=== PATIENT | female | born 1960 | race African-American/Black ===

== ENCOUNTER 2017-02-09 22:07 | Inpatient (IN) ==
[2017-02-09] MEDS ORDERED: NITROGLYCERIN 2% OINT 1 INCH/GM PACK TOP STA (22:47)
[2017-02-09] MEDS ORDERED: MORPHINE 2 MG/1 ML SYRINGE IV STA (22:47)
[2017-02-09] MEDS ORDERED: ASPIRIN 325 MG TABLET PO STA (22:47)
[2017-02-09] MEDS ORDERED: hydrALAZINE 20 MG/1 ML VIAL IV STA (22:47)
[2017-02-09] MEDS ORDERED: ONDANSETRON 4 MG/2 ML VIAL IV STA (22:47)
--- NOTE | 2017-02-09 22:50 | EKG Report ---
Stationary ECG Study [facility] ER Test Date: 02/09/2017 10:22:08 PM Pat Name: MORA RASMUSSEN Department: Room: Gender: F Seo Intern: Kati : 1960 Requested by: Howard Grant Order Number: [id number] Jesús MD: MARLENE GUNTER Intervals [place] Rate: 112 P: 61 IN: 145 QRS: 35 QRSD: 77 T: 47 QT: 344 QTc: 410 Interpretive Statements SINUS TACHYCARDIA POSSIBLE LEFT ATRIAL ENLARGEMENT Electronically Signed On 02-11-17 17:53:18 CDT by MARLENE GUNTER [email or web address]
[2017-02-09] MEDS ORDERED: NITROGLYCERIN 2% OINT 1 INCH/GM PACK TOP ONE (22:59)
[2017-02-09] MEDS ORDERED: hydrALAZINE 20 MG/1 ML VIAL ONE (22:59)
[2017-02-09] MEDS ORDERED: MORPHINE 2 MG/1 ML SYRINGE ONE (23:00)
[2017-02-09] MEDS ORDERED: ASPIRIN 325 MG TABLET ONE (23:00)
[2017-02-09] MEDS ORDERED: ONDANSETRON 4 MG/2 ML VIAL ONE (23:00)
[2017-02-09 23:05] LABS: Basophils % 0.6 % (0.0-0.8); Eosinophils # 0.1 10*3/uL (0.0-0.87); Eosinophils % 1.9 % (0.00-10.9); Hematocrit 40.4 VOL% (35.7-47.0); Hemoglobin 13.5 GM/DL (12.0-16.0); Immature Granulocytes % 0.3 %; Immature Granulocytes Absolute 0.02 #; Lymphocytes # 1.3 10*3/uL (1.4-4.0); Lymphocytes % 18.4 % (21.3-54.2); Mean Corpuscular HGB Conc 33.4 GM/DL (32-36); Mean Corpuscular Hemoglobin 28 PG (27-34); Mean Corpuscular Volume 82.8 FL (87-102); Mean Platelet Volume 13.5 FL (9.6-12.0); Monocytes # 0.6 10*3/uL (0.11-0.8); Monocytes % 8.4 % (1.7-12.7); Neutrophils # 4.8 10*3/uL (1.4-7.4); Neutrophils % 70.4 % (38.7-73.9); Platelet Count 190 T/CUMM (130-400); Red Blood Count 4.88 MC/CUMM (3.8-5.5); Red Cell Distribution Width 13.1 % (9.3-17.3); White Blood Count 6.8 T/CUMM (4-12)
--- NOTE | 2017-02-09 23:07 | Emergency Department Note ---
Andrew Pro Emily, am scribing for, and in the presence of, Howard Pemberton MD 22: 56. Nilay Pro Charles R, MD, personally performed the services described in this documentation, ascribed by May Morales in my presence, and it is both accurate and complete . Arrival - Arrival Chief Complaint: Chest Pain Stated Complaint: Chest Pains,upset stomach,Headaches ED Nursing Triage Note: pt states she started having cp yesterday and some sob. states it has gotten worse and now has developed n/v/d today Mode of Arrival: Ambulatory Limitations: No Limitations Source: Patient - History of Present Illness HPI Narrative: Pt is a 56 y/o female who came to ED with c/o pain that distributes throughout the body to bilateral knees which started last night. Pt notes the pain radiates from neck to chest down through abdomen, back, and legs. Pt notes not able to sleep due to pain last night. She is also experiencing numbness to legs , more so in left leg than right. PMHx of HTN, IDDM, NIDDM, COPD, biopsy- proven sarcoidosis, and RA. Onset (ago): day(s) Consistency: constant Severity: moderate Severity scale (1-10): 6 Quality: aching Allergies/Adverse Reactions: Allergies Allergy/AdvReac Type Severity Reaction Status Date / Time Penicillins AdvReac ANAPHYLAXIS Verified 12/14/15 19:49 Home Medications: Home Medications Medication Instructions Recorded Confirmed Type Budesonide/Formoterol 160-4.5 2 puff INH BID 07/09/15 09/20/16 History [Symbicort 160-4.5] Citalopram [CeleXA] 40 mg PO DAILY 07/09/15 09/20/16 History Insulin Glargine [Lantus] 45 unit SUBCUT BEDTIME 07/09/15 09/20/16 History Lisinopril 30 mg PO DAILY 07/09/15 09/20/16 History Loratadine [Claritin] 10 mg PO DAILY 07/09/15 09/20/16 History Ergocalciferol (Vitamin D2) 50,000 units PO Q7DAY 05/05/16 09/20/16 History [Vitamin D2] Albuterol Inhaler [Proventil 1 inhaler INH TID #1 inhaler 05/11/16 09/20/16 Rx Inhaler] Theophylline ER Tab 300 mg PO BID W/MEALS #60 tablet 05/11/16 09/20/16 Rx amLODIPine [Norvasc] 10 mg PO DAILY #30 tablet 05/11/16 09/20/16 Rx cloNIDine TAB [Catapres Tab] 0.2 mg PO TID #90 tablet 05/11/16 09/20/16 Rx Lidocaine 5% Patch [Lidoderm 5% 2 patch TRANSDERM DAILY #4 patch 06/04/16 Rx Patch] Ondansetron Tab [Zofran Tab] 4 mg PO Q6HR PRN #16 tablet 06/04/16 09/20/16 Rx Ciprofloxacin Tab [Cipro Tab] 500 mg PO BID #6 tablet 09/21/16 Rx Review of System - Review of System 12 point system: reviewed and no additional remarkable complaints except as stated - Review of System Constitutional: Absent: fever Respiratory: Absent: respiratory distress Cardiovascular: Present: chest pain (radiates throughout body) Gastrointestinal: Present: abdominal pain. Absent: nausea Musculoskeletal: Present: back pain, leg pain, neck pain Skin: Absent: rash Neurological: Present: numbness (to lower extremities). Absent: headache, confusion Psychiatric: Absent: anxiety Medical,Surgical,& Family Hx - Medical History Cardio: History of: Hypertension Psychological: History of: Anxiety Disorders, Depression Endocrine: History of: Diabetes Mellitus (IDDM), Diabetes Mellitus (NIDDM) Rheumatology: History of;: Rheumatoid Arthritis Respiratory: History of: Asthma, COPD, Respiratory Problems (biopsy-proven sarcoidosis) Musculoskeletal: No history of: Amputation - Surgical History Neurologic Surgeries: Patient denies: Neurologic Surgery HEENT Surgeries: Patient denies: Eye Surgery, Thyroid Surgery, Tonsilectomy & Adenoidectomy Abdominal Surgeries: Patient denies: Abdominal Surgery Reproductive Surgeries: Surgical HX of;: Section (x4), Hysterectomy Patient denies;: Genitourinary Surgery - Family History Family History: Reports;: Family Diabetes (mother sister), Family Hypertension ( mother) - Social History Smoking Status: Never smoker Frequency of Alcohol Use: None Type of Drug Use: None Functional capacity: independent ambulation Exam Vital Signs: Vital Signs Temperature 98.0 F 02/09/17 22:11 Pulse Rate 113 H 02/09/17 22:11 Respiratory Rate 20 02/09/17 22:11 Blood Pressure 225/162 02/09/17 22:11 O2 Sat by Pulse Oximetry 92 L 02/09/17 22:11 - General General appearance: alert, in no apparent distress - Head Head exam: Present: atraumatic, normocephalic - Eye Eye exam: Present: PERRL, EOMI - ENT ENT exam: Present: mucous membranes moist, other (grinds teeth). Absent: mucous membranes dry - Neck Neck exam: Present: full ROM, other (JVD distention ). Absent: tenderness - Chest Chest inspection: Present: symmetric chest wall rise. Absent: tenderness - Respiratory Respiratory exam: Present: rales (bilateral). Absent: normal lung sounds bilaterally - Cardiovascular Cardiovascular exam: Present: tachycardia, normal heart sounds - Abdominal Exam Abdominal exam: Present: soft, distention (bloated), tenderness (epigastric), diminished bowel sounds. Absent: guarding, rebound - Extremities Exam Extremities exam: Present: full ROM, pedal edema (+2), other (pulsating in femoral). Absent: tenderness - Neurological Exam Neurological exam: Present: alert, oriented X3, CN II-XII intact. Absent: motor sensory deficit - Psychiatric Psychiatric exam: Present: normal affect, normal mood - Skin Skin exam: Present: warm, dry, intact Course - Consultations Consultation #1: Hospitalist will admit patient Time: 23:55 Results - Labs CBC & BMP: 02/09/17 22:54 02/09/17 22:54 Lab Results: I have reviewed the patients labs Labs: Laboratory Tests 02/09/17 22:54 MCV 82.8 L MPV 13.5 H Lymph % (Auto) 18.4 L Lymph # (Auto) 1.3 L Laboratory Tests 02/09/17 02/09/17 22:54 22:54 Potassium 3.4 L Chloride 109 H BUN 19 H Creatinine 1.20 H Glucose 141 H Magnesium 1.7 L Alkaline Phosphatase 212 H Troponin I 0.074 H Albumin/Globulin Ratio 1.0 L Critical Care Time Critical Care Time: Yes Total Critical Care Time: 60 Disposition Clinical Impression: Medical non-compliance, Acute dyspnea, Chest pain, Malignant hypertension, Sarcoidosis of lung with sarcoidosis of lymph nodes Case discussed with: patient Disposition: Still a Patient Condition: Critical Time of Disposition: 23:55
[2017-02-09 23:14] LABS: INR 1.1; PT Patient Result 11.5 SECS
[2017-02-09 23:27] LABS: Alanine Aminotransferase 21 U/L (13-56); Albumin 3.5 G/DL (3.4-5.0); Alkaline Phosphatase 212 U/L (45-117); Aspartate Amino Transferase 22 U/L (0-37); Bilirubin,Total < 0.39 MG/DL (0.2-1.0); Blood Urea Nitrogen 19 MG/DL (7-18); Calcium 9.5 MG/DL (8.5-10.1); D-Dimer <= 0.5 MG/L FEU; Glucose 141 MG/DL (74-106); Magnesium 1.7 MG/DL (1.8-2.4); Osmolality,Calculated 289.8 MOS/KG (273-304); Potassium 3.4 MMOL/L (3.5-5.1); Sodium 144 MMOL/L (136-145)
[2017-02-09] MEDS ORDERED: POTASSIUM CHLORIDE 20 MEQ TABLET PO STA (23:36)
[2017-02-09] MEDS ORDERED: MAGNESIUM SULF RIDER 2 GM in PREMIX 1 EACH IV STA (23:36)
[2017-02-09] MEDS ORDERED: MAGNESIUM SULF RIDER 50 ML IV ONE (23:47)
[2017-02-09] MEDS ORDERED: POTASSIUM CHLORIDE 20 MEQ TABLET PO ONE (23:47)
[2017-02-09] MEDS ORDERED: FUROSEMIDE 40 MG/4 ML VIAL IV STA (23:54)
[2017-02-10 00:07] LABS: Barbiturates Screen,Urine Negative (Negative); Benzodiazepines Screen,Urine Negative (Negative); Cannabinoid Screen,Urine Negative (Negative); Opiate Screen,Urine Positive (Negative); Phencyclidine Screen,Urine Negative (Negative)
[2017-02-10 00:08] LABS: Apearance,Urine CLEAR (Clear); Bilirubin,Urine Negative (Negative); Blood, Urine Moderate mg/dL (Negative); Glucose,Urine (UA) Negative (Negative); Ketones,Urine Negative (Negative); Nitrite,Urine Negative (Negative); Protein,Urine Negative; RBC,Urine 21 /HPF (0-4); Squamous Epithelial Cell,Urine Occasional /HPF (0-10); Urine Color Straw (Yellow); Urine Specific Gravity 1.023 (1.001-1.035); Urine Urobilinogen < 2.0 EU/DL (0.2-1.0); WBC,Urine 2 /HPF (0-6)
--- NOTE | 2017-02-10 00:36 | Hospitalist History & Physical ---
Assessment and Plan (1) Acute dyspnea Status: Acute Assessment and plan: Most likely associated with malignant hypertension. This patient also has history of sarcoidosis pulmonary sarcoidosis could be a contribution. Need to be followed as well controlled and blood pressure. Hopefully that will respond put in the coming 46 hours Current Visit: Yes (2) Chest pain Status: Acute Assessment and plan: Patient is seen complaining of pain that is constantly there. No reproducible she is complaining of shortness of breath whether this is a pulmonary source is not clear Current Visit: Yes (3) Malignant hypertension Status: Acute Assessment and plan: This could be contribution of her essential hypertension but noncompliance with medication is something to do with it because she withheld use of clonidine at home. Cannot explain to me why she did not use her clonidine looks like she has been missing it multiple times. She gets her medication from the [place] system. I believe this medication should be resumed alongside other oral antihypertensives except for the amlodipine we should withheld now that we are using Cardene. The prep patient comes down we should resume the amlodipine and stop the Cardene IV. She will be admitted to the intensive care unit to hospital medicine services. Current Visit: Yes History of Present Illness Chief complaint: Chest pain History of present illness: Ms. Rubi is a 56 year old female came to ED with c/o pain that distributes throughout the body to bilateral knees which started last night. Pt notes the pain radiates from neck to chest down through abdomen, back, and legs. Pt notes not able to sleep due to pain last night. She is also experiencing numbness to legs, more so in left leg than right. PMHx of HTN, IDDM, NIDDM, COPD, biopsy-proven sarcoidosis, and RA. Patient is known to be hypertensive with followed by [place] hospital system in the area. She acknowledges not having use her clonidine for at least 3 days. Concerned that this could be refractory hypertension. Blood pressure at home however she mentions that on the high 2. Patient was seen and stabilized in the emergency room was started on IV Cardene which will continue overall I think this patient should be resuming her home medications and if the blood pressures come to within acceptable range Tylenol for Cardene. Is also taking amlodipine at home which of withheld at this point because we are using Cardene. I discussed the case with the patient and family member at bedside and also with a physician in the emergency room about the events that happened at home to where she is missed her medications. Home Medications Medication Instructions Recorded Confirmed Type Budesonide/Formoterol 160-4.5 2 puff INH BID 07/09/15 09/20/16 History [Symbicort 160-4.5] Citalopram [CeleXA] 40 mg PO DAILY 07/09/15 09/20/16 History Insulin Glargine [Lantus] 45 unit SUBCUT BEDTIME 07/09/15 09/20/16 History Lisinopril 30 mg PO DAILY 07/09/15 09/20/16 History Loratadine [Claritin] 10 mg PO DAILY 07/09/15 09/20/16 History Ergocalciferol (Vitamin D2) 50,000 units PO Q7DAY 05/05/16 09/20/16 History [Vitamin D2] Albuterol Inhaler [Proventil 1 inhaler INH TID #1 inhaler 05/11/16 09/20/16 Rx Inhaler] Theophylline ER Tab 300 mg PO BID W/MEALS #60 tablet 05/11/16 09/20/16 Rx amLODIPine [Norvasc] 10 mg PO DAILY #30 tablet 05/11/16 09/20/16 Rx cloNIDine TAB [Catapres Tab] 0.2 mg PO TID #90 tablet 05/11/16 09/20/16 Rx Lidocaine 5% Patch [Lidoderm 5% 2 patch TRANSDERM DAILY #4 patch 06/04/16 Rx Patch] Ondansetron Tab [Zofran Tab] 4 mg PO Q6HR PRN #16 tablet 06/04/16 09/20/16 Rx Ciprofloxacin Tab [Cipro Tab] 500 mg PO BID #6 tablet 09/21/16 Rx Allergies Allergy/AdvReac Type Severity Reaction Status Date / Time Penicillins AdvReac ANAPHYLAXIS Verified 12/14/15 19:49 Medical,Surgical,& Family Hx - Medical History Cardio: History of: Hypertension Psychological: History of: Anxiety Disorders, Depression Endocrine: History of: Diabetes Mellitus (IDDM), Diabetes Mellitus (NIDDM) Rheumatology: History of;: Rheumatoid Arthritis Respiratory: History of: Asthma, COPD, Respiratory Problems (biopsy-proven sarcoidosis) Musculoskeletal: No history of: Amputation - Surgical History Neurologic Surgeries: Patient denies: Neurologic Surgery HEENT Surgeries: Patient denies: Eye Surgery, Thyroid Surgery, Tonsilectomy & Adenoidectomy Abdominal Surgeries: Patient denies: Abdominal Surgery Reproductive Surgeries: Surgical HX of;: Section (x4), Hysterectomy Patient denies;: Genitourinary Surgery - Family History Family History: Reports;: Family Diabetes (mother sister), Family Hypertension ( mother) - Social History Smoking Status: Never smoker Frequency of Alcohol Use: None Type of Drug Use: None Review of systems: 12 system assessment was done. Constitutional nothing pans out. Patient still complaining of some chest discomfort. CT scan done is pending report but there is no obvious dissection. Still circulation is good. High blood pressures and Cardene adjust been started. As is review of systems significant for the chief complaint history of presenting illness and past medical history Exam - Constitutional Vitals: Period Temp Pulse Resp BP Sys/Camp Pulse Ox Last 24 Hr 98.0 F 113 20 225/162 92 General appearance: over weight - Head Head exam: Present: normocephalic, atraumatic - Eye Eye exam: Present: EOMI, other (Anicteric sclera no conjunctival petechiae pink conjunctivae) Pupils: Present: TORI - ENT ENT exam: Present: normal oropharynx - Neck Neck exam: Present: normal inspection, other (No JVD no bruits midline trachea) - Respiratory Respiratory exam: Present: clear to auscultation bilaterally, other (No rales no wheezing) - Cardiovascular Cardiovascular exam: Present: regular rate and rhythm, other (No gallops no murmur) - GI/Abdominal GI/Abdominal exam: Present: normal bowel sounds, soft - Neurological Exam Neurological exam: Present: alert, oriented X3, CN II-XII intact - Psychiatric Psychiatric exam: Present: normal affect, normal mood - Skin Skin exam: Present: normal color, warm, dry Results - Labs CBC & BMP: 02/09/17 22:54 02/09/17 22:54 Lab Results: I have reviewed the past 24 hour labs (Noted mild hypokalemia and a creatinine of 1.2)
[2017-02-10] MEDS ORDERED: FUROSEMIDE 40 MG/4 ML VIAL ONE (00:59)
[2017-02-10] MEDS ORDERED: ONDANSETRON 4 MG/2 ML VIAL IV PRN (03:00)
[2017-02-10] MEDS ORDERED: PANTOPRAZOLE 40 MG VIAL IV ONE (03:00)
--- NOTE | 2017-02-10 04:35 | EKG Report ---
Stationary ECG Study [facility] Test Date: 02/10/2017 2:37:28 AM Pat Name: MORA RASMUSSEN Department: Room: 127 Gender: F Home Service Director: : 1960 Requested by: Howard Grant Order Number: [id number] Reading MD: MARLENE GUNTER Intervals [place] Rate: 88 P: 62 MT: 133 QRS: 28 QRSD: 81 T: 45 QT: 403 QTc: 448 Interpretive Statements SINUS RHYTHM WITH SHORT MT POSSIBLE LEFT ATRIAL ENLARGEMENT Electronically Signed On 02-11-17 17:55:36 CDT by MARLENE GUNTER [email or web address]
--- NOTE | 2017-02-10 04:43 | EKG Report ---
Stationary ECG Study [facility] Test Date: 02/10/2017 4:43:34 AM Pat Name: MORA RASMUSSEN Department: Room: 127 Gender: F Medical Laboratory Technologist: : 1960 Requested by: Howard Grant Order Number: [id number] Reading MD: MARLENE GUNTER Intervals [place] Rate: 96 P: 60 TX: 123 QRS: 28 QRSD: 77 T: 34 QT: 422 QTc: 475 Interpretive Statements SINUS RHYTHM WITH SHORT TX WITH OCCASIONAL ECTOPIC PREMATURE COMPLEXES PROLONGED QT INTERVAL Electronically Signed On 02-11-17 17:57:32 CDT by MARLENE GUNTER [email or web address]
[2017-02-10] MEDS: niCARdipine INJ 25 MG in SODIUM CHLORIDE 0.9% 240 ML IV SCH ×3 (05:15→10:00)
[2017-02-10 06:14] LABS: Calcium 9.4 MG/DL (8.5-10.1); Potassium 3.5 MMOL/L (3.5-5.1)
--- NOTE | 2017-02-10 07:18 | XRay Report ---
Referring Physician: Howard Pemberton Exam: XR chest 1V portable Date: February 09, 2017 at 11:07 AM Reason: Chest pain Comparison: Chest one view portable September 20, 2016, CT angiogram aorta February 09, 2017 Findings: The cardiac silhouette is again enlarged. The interstitial markings are slightly prominent bilaterally, mainly on the right. This could represent minimal pulmonary edema, but pneumonia is not excluded. No pneumothorax or pleural effusion is identified. No acute osseous process is seen. Impression: 1. Cardiomegaly. 2. The interstitial markings are slightly prominent, mainly on the right. This could represent minimal pulmonary edema, but pneumonia is not excluded. PROCEDURE INTERPRETED AT [facility] DEPARTMENT OF RADIOLOGY Final Report Signed by: Dr. Remberto Mera
[2017-02-10] MEDS: ALBUTEROL 2.5 MG/3 ML NEB RESP TX SCH ×3 (07:27→19:19)
--- NOTE | 2017-02-10 07:34 | CT Report ---
CT angiography of the chest, abdomen, and pelvis, to include the aorta. Axial images were obtained during the arterial phase, with sagittal and coronal reconstructions as well as 3-D reconstructions. Comparison is made with the previous CT of the abdomen from June 03, 2016. There is a previous abdomen and pelvis CT from May 07, 2016. No previous contrasted CT of the chest. 100 cc Omni 350. Indication: Acute chest and abdomen pain. There is a preliminary report from [place]. The thyroid gland is normal in size. There is no supraclavicular lymphadenopathy. There is no pericardial or pleural effusion. Within the right upper lobe, there is an interstitial infiltrate, with scattered interstitial opacities elsewhere. The heart is enlarged. No pulmonary thromboembolism is seen. There is no pericardial or pleural effusion. The aorta is of normal caliber throughout its length. At the aortic root, the transverse dimension is 3.3 cm and the AP diameter is 2.9 cm. At the arch, the transverse diameter is 2.8 cm and the AP diameter is 2.7 cm. At the descending thoracic aorta, the AP diameter is 2.3 cm in the transverse diameter is 2.5 cm. At the upper abdominal aorta, the AP diameter is 2.2 cm in the transverse diameter is 2.3 cm. At the mid abdominal aorta, the AP diameter is 1.8 cm in transverse diameter is 1.8 cm. At the distal abdominal aorta, the AP diameter is 1.75 cm in the transverse diameter is 1.75 cm. Along the undersurface of the aortic arch, there is a small amount of calcific plaque. No additional plaque is noted. No intimal flaps, or intramural thrombus seen. No evidence of aortic dissection. There is a common trunk for the right subclavian artery, vertebral artery, and carotid artery. The left carotid as a separate origin, the left vertebral originates from the left subclavian. These vessels are widely patent. There are single renal arteries bilaterally. The origins of the celiac, SMA, renal arteries, and iliac arteries are widely patent. The liver is enlarged with the length of 19 cm. The spleen is upper limits of normal in size with a splenic index of 540. Scattered colonic diverticula are noted. There is mild stable prominence of the pancreatic duct. No free air or free fluid within the peritoneal cavity. Mild focal wall thickening on the left aspect of the urinary bladder, not seen previously. Degenerative changes of the spinal column, with anterior wedging of a couple of lower thoracic vertebra. Impression: 1. The aorta is of normal caliber throughout its length, with only a small amount of calcific plaque along the undersurface of the arch. There is no evidence of aneurysm or dissection. 2. There is a right upper lobe pneumonia. 3. Cardiomegaly. 4. Mild asymmetric thickening of the left urinary bladder wall. This could be related to scar tissue or cystitis. Very early developing mass cannot be excluded. Correlation with follow-up UA recommended. The CT exam was performed using one or more of the following dose reduction techniques: Automated exposure control, adjustment of the mA and/or kV according to patient size, or use of iterative reconstruction technique. PROCEDURE INTERPRETED AT [facility] DEPARTMENT OF RADIOLOGY Final Report Signed by: Dr. Ayanna Mcfarlane
[2017-02-10] MEDS ORDERED: ERGOCALCIFEROL 50,000 UNIT CAPSULE PO SCH (09:00)
[2017-02-10] MEDS ORDERED: DEXTROSE 50% 25 GM/50 ML VIAL IV PRN (09:16)
[2017-02-10] MEDS ORDERED: GLUCAGON 1 MG VIAL IM PRN (09:16)
[2017-02-10] MEDS ORDERED: FUROSEMIDE 40 MG/4 ML VIAL IV ONE (09:16)
[2017-02-10] MEDS: THEOPHYLLINE ER 300 MG TABLET PO SCH ×2 (09:17→17:40)
[2017-02-10] MEDS: CITALOPRAM 40 MG TABLET PO SCH (09:18)
[2017-02-10] MEDS: LISINOPRIL 10 MG TABLET PO SCH (09:20)
[2017-02-10] MEDS: LORATADINE 10 MG TABLET PO SCH (09:20)
[2017-02-10] MEDS: PANTOPRAZOLE 40 MG VIAL IV SCH (09:21)
[2017-02-10] MEDS: BUDESONIDE/FORMOTEROL 160-4.5 INHALER 6 GM INH SCH ×2 (09:26→20:41)
[2017-02-10] MEDS ORDERED: LIDOCAINE 5% PATCH TRANSDERM SCH (09:30)
[2017-02-10] MEDS: amLODIPine 10 MG TABLET PO SCH (09:40)
[2017-02-10] MEDS: INSULIN LISPRO 100 UNIT/ML SUBCUT SCH ×3 (12:11→20:41)
[2017-02-10] MEDS: ACETAMINOPHEN 325 MG TABLET PO PRN ×2 (15:20→20:40)
[2017-02-10] MEDS ORDERED: INSULIN GLARGINE 100 UNIT/ML SUBCUT SCH (21:00)
[2017-02-10] MEDS ORDERED: SODIUM CHLORIDE 0.9% 500 ML IV ONE (23:13)
[2017-02-11 06:37] LABS: Calcium 9.1 MG/DL (8.5-10.1); Osmolality,Calculated 294.6 MOS/KG (273-304); Potassium 3.5 MMOL/L (3.5-5.1)
[2017-02-11] MEDS: INSULIN LISPRO 100 UNIT/ML SUBCUT SCH ×4 (07:20→21:35)
[2017-02-11] MEDS: niCARdipine INJ 25 MG in SODIUM CHLORIDE 0.9% 240 ML IV SCH (07:21)
[2017-02-11] MEDS ORDERED: cloNIDine 0.1 MG TABLET PO SCH (07:26)
[2017-02-11] MEDS ORDERED: SODIUM CHLORIDE 0.9% 500 ML IV ONE (07:26)
[2017-02-11] MEDS: LISINOPRIL 10 MG TABLET PO SCH (08:30)
[2017-02-11] MEDS: THEOPHYLLINE ER 300 MG TABLET PO SCH ×2 (08:30→17:02)
[2017-02-11] MEDS: PANTOPRAZOLE 40 MG VIAL IV SCH (08:30)
[2017-02-11] MEDS: amLODIPine 10 MG TABLET PO SCH (08:30)
[2017-02-11] MEDS: CITALOPRAM 40 MG TABLET PO SCH (08:30)
[2017-02-11] MEDS: SODIUM CHLORIDE 0.45% 1,000 ML IV SCH ×2 (08:30→21:05)
[2017-02-11] MEDS: LORATADINE 10 MG TABLET PO SCH (08:31)
[2017-02-11] MEDS: BUDESONIDE/FORMOTEROL 160-4.5 INHALER 6 GM INH SCH ×2 (08:32→20:52)
[2017-02-11] MEDS: ALBUTEROL 2.5 MG/3 ML NEB RESP TX SCH ×3 (08:41→19:54)
--- NOTE | 2017-02-11 10:27 | Physician Query Form ---
CLICK EDIT DOCUMENT TO SELECT QUERY ANSWER --> OK --> SIGN Aarti Leigh RN Clinical Quality Assurance Supervisor Trim W) [phone] (f) [phone] [email or web address] PROVIDERS: Make your selection(s) from the choices in EACH section by typing an "x" and enter comments in the comment section. Please use your independent medical judgment in providing your response. This request does not imply that any particular answer is desired or expected. CLINCAL INDICATORS: (Providers should not edit this section) Based on the documentation of "Acute malignant hypertension" BP in ER of 225/ 162. Treated with IV Cardene. Note: Hypertensive crises can present as hypertensive urgency or hypertensive emergency. Clarify which, if any of the following, is a more accurate diagnosis reflecting the type and acuity of the documented hypertension: TYPE: ( ) Hypertensive Urgency (x ) Hypertensive Emergency ( ) Uncontrolled chronic hypertension at baseline ( ) Other, please specify: ( ) Clinically unable to determine Criteria Source - Up to Date (This topic last updated: Dec 10, 2015) HYPERTENSIVE URGENCY: Severe hypertension (usually a diastolic blood pressure above 120 mmHg) in asymptomatic patients is referred to as hypertensive urgency. There is no proven benefit from rapid reduction in blood pressure in asymptomatic patients who have no evidence of acute end-organ damage and are at little short-term risk. HYPERTENSIVE EMERGENCY: Severe hypertension (usually a diastolic blood pressure above 120 mmHg) with evidence of acute end-organ damage is defined as a hypertensive emergency. A hypertensive emergency can be life threatening and requires immediate treatment, usually with parenteral medications in a monitored setting. COMMENTS: Use of terms such as suspected, likely, or probable (associated with a specific diagnosis that is being evaluated, monitored, or treated as if it exists) are acceptable and can be restated in the discharge summary if not ruled out. MTDD
--- NOTE | 2017-02-11 11:21 | Hospitalist Progress Note ---
Assessment and Plan (1) Malignant hypertension Status: Resolved Assessment and plan: 1)malignant HTN- she presented as she has done before with shortness of breath and atypical chest pain due to her uncontrolled HTN. These symptoms resolved when her Bp was controlled. Stop the clonidine and only give norvasc it SBP over 120. I have bolused her again this morning as she appears dry after her diuresis yesterday. Her UOp has now increased. She is dehydrated. 2)MAGNOLIA- due to diuresis, recheck creatinine in am. bolused, started some IVF. 3)DM- decrease insulin to 35U each day with SSI. glucose only 91 this morning and she is not eating much. Current Visit: No (2) Dyspnea Status: Acute Current Visit: No (3) Sarcoidosis Status: Acute Current Visit: No (4) Atypical chest pain Status: Acute Current Visit: No (5) Insulin dependent diabetes mellitus Status: Acute Current Visit: No (6) Medical non-compliance Status: Acute Current Visit: Yes Hospitalist: Subjective Interval history: Ms Rubi is doing much better. Her Bp is actually on the low side this morning - I think when we restarted the meds she takes at home it has dropped because she doesn't actually take them. She says she takes her insulin at home regularly, but I am going to have to decrease it because she has been a little low. Exam - Constitutional Vitals: Period Temp Pulse Resp BP Sys/Camp Pulse Ox Last 24 Hr 96.7 F-98.2 F 66-94 16-22 91-149/52-99 90-99 General appearance: no acute distress, over weight - Head Head exam: Present: normocephalic, atraumatic - Eye Eye exam: Present: EOMI. Absent: scleral icterus - Respiratory Respiratory exam: Present: clear to auscultation bilaterally - Cardiovascular Cardiovascular exam: Present: regular rate and rhythm - GI/Abdominal GI/Abdominal exam: Present: normal bowel sounds, soft. Absent: tenderness - Extremities Exam Extremities exam: Absent: edema Results - Labs CBC & BMP: 02/09/17 22:54 02/11/17 04:41 Lab Results: I have reviewed the past 24 hour labs
[2017-02-11] MEDS: ACETAMINOPHEN 325 MG TABLET PO PRN (17:05)
[2017-02-11] MEDS: INSULIN GLARGINE 100 UNIT/ML SUBCUT SCH (21:38)
[2017-02-12] MEDS: ALBUTEROL 2.5 MG/3 ML NEB RESP TX SCH ×3 (08:01→19:53)
[2017-02-12] MEDS: PANTOPRAZOLE 40 MG VIAL IV SCH (09:22)
[2017-02-12] MEDS: INSULIN LISPRO 100 UNIT/ML SUBCUT SCH ×4 (09:22→21:45)
[2017-02-12] MEDS: amLODIPine 10 MG TABLET PO SCH (09:25)
[2017-02-12] MEDS: LISINOPRIL 10 MG TABLET PO SCH (09:25)
[2017-02-12] MEDS: THEOPHYLLINE ER 300 MG TABLET PO SCH ×2 (09:25→16:53)
[2017-02-12] MEDS: CITALOPRAM 40 MG TABLET PO SCH (09:26)
[2017-02-12] MEDS: LORATADINE 10 MG TABLET PO SCH (09:26)
[2017-02-12] MEDS: BUDESONIDE/FORMOTEROL 160-4.5 INHALER 6 GM INH SCH ×2 (09:26→20:29)
[2017-02-12] MEDS: ACETAMINOPHEN 325 MG TABLET PO PRN ×2 (09:30→20:26)
--- NOTE | 2017-02-12 09:48 | Hospitalist Progress Note ---
Assessment and Plan (1) Acute dyspnea Status: Acute Assessment and plan: Resolved on this assessment. Current Visit: Yes (2) Chest pain Status: Acute Assessment and plan: Resolved at this time with this assessment. This was associated with hypertensive emergency. Current Visit: Yes (3) Malignant hypertension Status: Acute Assessment and plan: Relatively well-controlled on this assessment. Patient is off IV Cardene 48 hours off. Continue lisinopril and amlodipine. It may be need of adding a beta -kenneth. Current Visit: Yes Hospitalist: Subjective Interval history: Patient seen interviewed and examined. She is complaining of a headache. Blood pressure enter from what looks like midnight is 195/88. Previous entries show blood pressures 120 and 132 was 1 that was actually 93/64 and another 149/ 82. The pattern is rather erratic. She is currently on lisinopril 30 mg daily and amlodipine 10 mg daily. His 2 other normal blood pressures medications at this point given the dramatic nature of the blood pressure so far. I would not like to cause hypotension. Exam - Constitutional Vitals: Period Temp Pulse Resp BP Sys/Camp Pulse Ox Last 24 Hr 96.6 F-98.5 F 76-93 16-20 123-195/72-88 90-99 General appearance: over weight - Head Head exam: Present: normocephalic, atraumatic - Eye Eye exam: Present: EOMI Pupils: Present: TORI - ENT ENT exam: Present: normal exam, normal oropharynx - Neck Neck exam: Present: normal inspection, other (No JVD no thyromegaly) - Respiratory Respiratory exam: Present: clear to auscultation bilaterally - Cardiovascular Cardiovascular exam: Present: regular rate and rhythm, other (Occasional ectopy) - GI/Abdominal GI/Abdominal exam: Present: normal bowel sounds - Extremities Exam Extremities exam: Present: full ROM - Skin Skin exam: Present: normal color, warm, dry Results - Labs CBC & BMP: 02/09/17 22:54 02/11/17 04:41 Lab Results: I have reviewed the past 24 hour labs (Morning labs are ordered for tomorrow)
[2017-02-12] MEDS: CARVEDILOL 6.25 MG TABLET PO SCH (20:27)
[2017-02-12] MEDS: INSULIN GLARGINE 100 UNIT/ML SUBCUT SCH (21:44)
[2017-02-13 03:58] LABS: Magnesium 1.9 MG/DL (1.8-2.4); Osmolality,Calculated 285.8 MOS/KG (273-304); Potassium 3.7 MMOL/L (3.5-5.1); Thyroid Stimulating Hormone 1.16 uIU/ml (0.358-3.74)
[2017-02-13] MEDS: ALBUTEROL 2.5 MG/3 ML NEB RESP TX SCH ×3 (07:26→19:30)
[2017-02-13] MEDS: amLODIPine 10 MG TABLET PO SCH ×2 (07:33→08:03)
[2017-02-13] MEDS: LORATADINE 10 MG TABLET PO SCH ×2 (07:34→08:03)
[2017-02-13] MEDS: CARVEDILOL 6.25 MG TABLET PO SCH ×2 (07:34→08:03)
[2017-02-13] MEDS: CITALOPRAM 40 MG TABLET PO SCH ×2 (07:34→08:03)
[2017-02-13] MEDS: THEOPHYLLINE ER 300 MG TABLET PO SCH ×2 (07:34→17:26)
[2017-02-13] MEDS: LISINOPRIL 10 MG TABLET PO SCH ×2 (07:34→08:03)
[2017-02-13] MEDS: PANTOPRAZOLE 40 MG VIAL IV SCH ×2 (07:35→08:03)
[2017-02-13] MEDS ORDERED: hydrALAZINE 20 MG/1 ML VIAL IV ONE (07:46)
[2017-02-13] MEDS: BUDESONIDE/FORMOTEROL 160-4.5 INHALER 6 GM INH SCH ×2 (08:03→20:48)
[2017-02-13] MEDS: INSULIN LISPRO 100 UNIT/ML SUBCUT SCH ×4 (08:04→22:05)
--- NOTE | 2017-02-13 10:51 | Hospitalist Progress Note ---
Assessment and Plan (1) Acute dyspnea Status: Acute Assessment and plan: Resolved on this assessment. Current Visit: Yes (2) Chest pain Status: Acute Assessment and plan: Resolved at this time with this assessment. This was associated with hypertensive emergency. Current Visit: Yes (3) Malignant hypertension Status: Acute Assessment and plan: Relatively well-controlled on this assessment. However this too sporadic spikes of blood pressure. Would have done a days raise the dose of lisinopril to 40 mg daily added hydrochlorothiazide 25 mg daily and raise the dose of carvedilol to 12.5 mg twice a day. Patient will be active ambulate intention is to discharge her tomorrow Current Visit: Yes Hospitalist: Subjective Interval history: Ms. Rubi is been seen interviewed and examined and chart has been reviewed. Noted area this morning systolic blood pressures above 200 with cyst diastolics 110. I have reviewed his long-term on antihypertensive medications. Lisinopril be increased to 40 mg daily and carvedilol will be increased to 12.5 mg twice a day. History of a heart hydrochlorothiazide on board alongside the lisinopril. Because there is no 4025 of lisinopril we will give hydrochlorothiazide separately as a tablet. Continue BP checks at least twice a shift. Encourage patient to ambulate. Target discharged date is tomorrow. Exam - Constitutional Vitals: Period Temp Pulse Resp BP Sys/Camp Pulse Ox Last 24 Hr 97.8 F-98.6 F 56-107 17-22 142-200/82-126 85-109 General appearance: over weight - Head Head exam: Present: normocephalic, atraumatic - Eye Eye exam: Present: EOMI Pupils: Present: TORI - ENT ENT exam: Present: normal oropharynx - Neck Neck exam: Present: normal inspection, other (Old anterior neck surgical scar. Denies hypothyroid issues but it was surgery to axis inside the chest. I wonder this was admitted for mediastinoscopy or removal of some sternal thyroid not sure patient is not sure either and is not medical record) - Respiratory Respiratory exam: Present: clear to auscultation bilaterally - Cardiovascular Cardiovascular exam: Present: regular rate and rhythm - GI/Abdominal GI/Abdominal exam: Present: normal bowel sounds, soft - Extremities Exam Extremities exam: Present: full ROM - Back Exam Back exam: Present: normal inspection - Neurological Exam Neurological exam: Present: alert, oriented X3, CN II-XII intact - Psychiatric Psychiatric exam: Present: normal affect, normal mood - Skin Skin exam: Present: normal color, warm, dry Results - Labs CBC & BMP: 02/09/17 22:54 02/13/17 02:22 Lab Results: I have reviewed the past 24 hour labs
[2017-02-13] MEDS: hydrALAZINE 20 MG/1 ML VIAL IV PRN (15:00)
[2017-02-13] MEDS: ACETAMINOPHEN 325 MG TABLET PO PRN ×2 (15:00→20:44)
[2017-02-13] MEDS: CARVEDILOL 12.5 MG TABLET PO SCH (20:49)
[2017-02-13] MEDS: INSULIN GLARGINE 100 UNIT/ML SUBCUT SCH (22:06)
[2017-02-14] MEDS: hydrALAZINE 20 MG/1 ML VIAL IV PRN (06:13)
[2017-02-14] MEDS: ALBUTEROL 2.5 MG/3 ML NEB RESP TX SCH (07:16)
[2017-02-14] MEDS: INSULIN LISPRO 100 UNIT/ML SUBCUT SCH ×2 (07:36→12:30)
[2017-02-14] MEDS: CITALOPRAM 40 MG TABLET PO SCH (08:33)
[2017-02-14] MEDS: THEOPHYLLINE ER 300 MG TABLET PO SCH (08:33)
[2017-02-14] MEDS: amLODIPine 10 MG TABLET PO SCH (08:34)
[2017-02-14] MEDS: PANTOPRAZOLE 40 MG VIAL IV SCH (08:34)
[2017-02-14] MEDS: CARVEDILOL 12.5 MG TABLET PO SCH (08:34)
[2017-02-14] MEDS: LORATADINE 10 MG TABLET PO SCH (08:34)
[2017-02-14] MEDS: BUDESONIDE/FORMOTEROL 160-4.5 INHALER 6 GM INH SCH (08:36)
[2017-02-14] MEDS ORDERED: CARVEDILOL 25 MG TABLET PO SCH (09:00)
[2017-02-14] MEDS ORDERED: LISINOPRIL 20 MG TABLET PO SCH (09:00)
[2017-02-14] MEDS ORDERED: hydroCHLOROthiazide 25 MG TABLET PO SCH (09:00)
[2017-02-14 10:11] VITALS: BP 161/74
--- NOTE | 2017-02-14 10:45 | Discharge Summary ---
<Ismael Jain - Last Filed: 02/14/17 10:38> Diagnosis - Discharge Diagnosis (1) Acute dyspnea Status: Acute (2) Chest pain Status: Acute (3) Malignant hypertension Status: Acute Discharge Plan - Discharge Data Disposition: Disch To Home/Self Care Condition at Discharge: Stable Discharge Diet: heart healthy Activity: resume usual activities as tolerated Hygiene: no restrictions Weight Bearing at Discharge: full weight bearing Driving: no restrictions - Discharge Medications New Lisinopril [Prinivil] 40 mg PO DAILY #30 tablet Theophylline ER Tab 300 mg PO BID W/MEALS #60 tablet hydroCHLOROthiazide [Hydrochlorothiazide] 25 mg PO DAILY #30 tablet Carvedilol [Coreg] 6.25 mg PO BID #60 tablet amLODIPine [Norvasc] 10 mg PO DAILY #30 tablet Continue Citalopram [CeleXA] 40 mg PO DAILY Insulin Glargine [Lantus] 50 unit SUBCUT BEDTIME Budesonide/Formoterol 160-4.5 [Symbicort 160-4.5] 2 puff INH BID Loratadine [Claritin] 10 mg PO DAILY Ergocalciferol (Vitamin D2) [Vitamin D2] 50,000 units PO Q7DAY Albuterol Inhaler [Proventil Inhaler] 1 inhaler INH TID #1 inhaler cloNIDine TAB [Catapres Tab] 0.2 mg PO TID #90 tablet Lidocaine 5% Patch [Lidoderm 5% Patch] 2 patch TRANSDERM DAILY #4 patch Ondansetron Tab [Zofran Tab] 4 mg PO Q6HR PRN #16 tablet PRN Reason: Nausea/Vomiting Discontinued Lisinopril 40 mg PO DAILY - Follow Up or Referral - Forms/Instructions Exam - Constitutional Vitals: Period Temp Pulse Resp BP Sys/Camp Pulse Ox Last 24 Hr 97.5 F-98.4 F 82-120 16-20 161-196/74-110 92-99 General appearance: over weight - Head Head exam: Present: normal inspection, normocephalic, atraumatic - Eye Eye exam: Present: EOMI Pupils: Present: TORI - ENT ENT exam: Present: normal exam - Neck Neck exam: Present: normal inspection - Cardiovascular Cardiovascular exam: Present: regular rate and rhythm - GI/Abdominal GI/Abdominal exam: Present: normal bowel sounds, soft - Extremities Exam Extremities exam: Present: full ROM - Back Exam Back exam: Present: normal inspection - Neurological Exam Neurological exam: Present: alert, oriented X3, CN II-XII intact - Psychiatric Psychiatric exam: Present: normal affect, normal mood - Skin Skin exam: Present: normal color, warm, dry Discharge Results Labs on day of discharge: Labs from last 24 hours 02/14/17 02/13/17 02/13/17 07:31 21:50 16:39 POC Glucose 154 H 157 H 107 H 02/13/17 02/13/17 11:08 07:12 POC Glucose 148 H 92 DS: Provider Date of admission: 02/10/17 00:27 Primary care physician: . No PCP Attending physician on admission: Ismael Jain MD Discharging clinician: Ismael Jain MD <Sukhi Hanley - Last Filed: 02/14/17 11:17> Hospital Course - Hospital Course Hospital Course: This patient is a 56 year-old female who was admitted through the [facility] ED on 02/10/2017 with malignant hypertension, chest pain and associated dyspnea. The patient was found to be non-compliant with her home medications. She was admitted to the ICU, treated for her hypertension with IV Cardene and diureses and was subsequently found to normalize fairly quickly and become dehydrated. She was bolused and started on IV fluids. Chest pain resolved within one day of admission. She was transferred to a med/surg floor. HTN medications were adjusted (Lisinopril increased to 40 mg daily, HCTZ 25 mg daily added, and Carvedilol increased to 12.5 mg twice daily). The remainder of her hospital course was relatively uncomplicated, highlighted by management of her hypertension and counseling for medical compliance. She has reached maximum benefit from hospitalization at this time and is stable for discharge. She will be discharged home with appropriate instructions per discharge orders and addendum per Dr. Jain. - Time spent with patient Time with patient DS: Greater than 30 minutes DS: Provider Expected date of discharge: 02/14/17
== END 2017-02-14 13:55 | disposition home or self-care (01) | DRG 305 ==
LOC: N.ED 22:07 → N.EDINP 02-10 00:27 → SUATTDRO 02-10 00:27 → N.CC 02-10 01:15 → N.4E 02-11 14:32
PROVIDERS: ADMIT Internal Medicine Infectious Disease; ATTEND Internal Medicine Infectious Disease

== ENCOUNTER 2017-08-14 21:32 | Observation (INO) ==
[2017-08-14] MEDS ORDERED: NITROGLYCERIN 2% OINT 1 INCH/GM PACK TOP STA (22:12)
[2017-08-14] MEDS ORDERED: FUROSEMIDE 100 MG/10 ML VIAL IV STA (22:12)
[2017-08-14] MEDS ORDERED: MORPHINE 2 MG/1 ML SYRINGE IV STA (22:12)
[2017-08-14] MEDS ORDERED: methylPREDNISolone SOD SUC 125 MG/2 ML VIAL IV STA (22:12)
[2017-08-14] MEDS ORDERED: ONDANSETRON 4 MG/2 ML VIAL IV STA (22:12)
[2017-08-14] MEDS ORDERED: hydrALAZINE 20 MG/1 ML VIAL IV STA (22:12)
[2017-08-14] MEDS ORDERED: NITROGLYCERIN 2% OINT 1 INCH/GM PACK TOP ONE (22:18)
[2017-08-14] MEDS ORDERED: hydrALAZINE 20 MG/1 ML VIAL ONE (22:18)
[2017-08-14] MEDS ORDERED: MORPHINE 2 MG/1 ML SYRINGE ONE (22:19)
[2017-08-14] MEDS ORDERED: ONDANSETRON 4 MG/2 ML VIAL ONE (22:19)
[2017-08-14] MEDS ORDERED: FUROSEMIDE 100 MG/10 ML VIAL ONE (22:19)
[2017-08-14] MEDS ORDERED: methylPREDNISolone SOD SUC 125 MG/2 ML VIAL ONE (22:19)
[2017-08-14] MEDS ORDERED: ALBUTEROL 2.5 MG/3 ML NEB RESP TX SCH (22:30)
[2017-08-14 22:43] LABS: Basophils # 0.1 10*3/uL (0.0-0.2); Basophils % 0.8 % (0.0-0.8); Eosinophils # 0.3 10*3/uL (0.0-0.87); Eosinophils % 4.2 % (0.00-10.9); Hematocrit 36.8 VOL% (35.7-47.0); Hemoglobin 12.6 GM/DL (12.0-16.0); Immature Granulocytes % 0.3 %; Immature Granulocytes Absolute 0.02 #; Lymphocytes # 1.5 10*3/uL (1.4-4.0); Lymphocytes % 25.9 % (21.3-54.2); Mean Corpuscular HGB Conc 34.2 GM/DL (32-36); Mean Corpuscular Hemoglobin 29 PG (27-34); Mean Corpuscular Volume 83.8 FL (87-102); Mean Platelet Volume 13.2 FL (9.6-12.0); Monocytes # 0.7 10*3/uL (0.11-0.8); Monocytes % 11.1 % (1.7-12.7); Neutrophils # 3.4 10*3/uL (1.4-7.4); Neutrophils % 57.7 % (38.7-73.9); Platelet Count 190 T/CUMM (130-400); Red Blood Count 4.39 MC/CUMM (3.8-5.5); Red Cell Distribution Width 12.9 % (9.3-17.3); White Blood Count 5.9 T/CUMM (4-12)
[2017-08-14 22:53] LABS: INR 1.1; PT Patient Result 11.4 SECS
[2017-08-14 23:06] LABS: Albumin 3.4 G/DL (3.4-5.0); Bilirubin,Total 0.4 MG/DL (0.2-1.0); Calcium 9.1 MG/DL (8.5-10.1); Magnesium 1.6 MG/DL (1.8-2.4); Potassium 3.6 MMOL/L (3.5-5.1); Total Protein 6.7 G/DL (6.4-8.3); Troponin I Only 0.021 NG/ML (0.00-0.045)
[2017-08-14] MEDS ORDERED: MAGNESIUM SULF RIDER 2 GM in PREMIX 1 EACH IV STA (23:14)
[2017-08-14 23:29] LABS: Apearance,Urine CLEAR (Clear); Bacteria,Urine Occasional /HPF (Few); Bilirubin,Urine Negative (Negative); Blood, Urine Negative (Negative); Glucose,Urine (UA) Negative (Negative); Hyaline Casts,Urine 1 /LPF (0-3); Ketones,Urine Negative (Negative); Mucus,Urine Occasional /LPF (Occasional); Nitrite,Urine Negative (Negative); Protein,Urine Negative; RBC,Urine 1 /HPF (0-4); Squamous Epithelial Cell,Urine Occasional /HPF (0-10); Urine Color Yellow (Yellow); Urine Specific Gravity 1.008 (1.001-1.035); Urine Urobilinogen < 2.0 EU/DL (0.2-1.0); WBC,Urine 3 /HPF (0-6)
[2017-08-14] MEDS ORDERED: MAGNESIUM SULF RIDER 50 ML IV ONE (23:36)
[2017-08-14 23:38] LABS: Barbiturates Screen,Urine Negative (Negative); Benzodiazepines Screen,Urine Negative (Negative); Cannabinoid Screen,Urine Negative (Negative); Opiate Screen,Urine Negative (Negative); Phencyclidine Screen,Urine Negative (Negative)
[2017-08-15] MEDS ORDERED: LEVOFLOXACIN INJ 750 MG in PREMIX 1 EACH IV STA (00:25)
[2017-08-15] MEDS ORDERED: hydrALAZINE 20 MG/1 ML VIAL ONE (00:37)
[2017-08-15] MEDS ORDERED: hydrALAZINE 20 MG/1 ML VIAL IV STA ×2 (00:40→00:48)
[2017-08-15] MEDS ORDERED: LEVOFLOXACIN INJ 150 ML IV ONE (00:50)
[2017-08-15] MEDS ORDERED: INSULIN REGULAR 100 UNIT/ML SUBCUT ONE (01:59)
[2017-08-15] MEDS ORDERED: ONDANSETRON 4 MG/2 ML VIAL IV PRN (01:59)
[2017-08-15] MEDS ORDERED: KETOROLAC 10 MG TABLET PO PRN (02:03)
[2017-08-15] MEDS ORDERED: hydrALAZINE 20 MG/1 ML VIAL IV PRN (02:04)
[2017-08-15] MEDS ORDERED: GLUCAGON 1 MG VIAL IM PRN ×2 (03:03→11:16)
[2017-08-15] MEDS ORDERED: DEXTROSE 50% 25 GM/50 ML VIAL IV PRN ×2 (03:03→11:16)
[2017-08-15] MEDS ORDERED: INFLUENZA VIRUS VACCINE 0.5 ML SYRINGE IM ONE (03:22)
[2017-08-15 04:43] LABS: Risk Ratio 4.66; VLDL CHOLESTEROL 18.2 MG/DL
[2017-08-15] MEDS: NITROGLYCERIN 2% OINT 1 INCH/GM PACK TOP SCH ×4 (05:33→23:32)
[2017-08-15] MEDS: ALBUTEROL 2.5 MG/3 ML NEB RESP TX SCH ×3 (07:50→20:03)
[2017-08-15] MEDS: INSULIN REGULAR 100 UNIT/ML SUBCUT SCH ×4 (08:50→22:25)
[2017-08-15] MEDS ORDERED: ERGOCALCIFEROL 50,000 UNIT CAPSULE PO SCH (09:00)
[2017-08-15] MEDS: hydroCHLOROthiazide 25 MG TABLET PO SCH (09:05)
[2017-08-15] MEDS: THEOPHYLLINE ER 300 MG TABLET PO SCH ×2 (09:05→16:37)
[2017-08-15] MEDS: CARVEDILOL 6.25 MG TABLET PO SCH ×2 (09:06→22:26)
[2017-08-15] MEDS: ASPIRIN EC 325 MG TABLET PO SCH (09:06)
[2017-08-15] MEDS: LISINOPRIL 20 MG TABLET PO SCH (09:06)
[2017-08-15] MEDS: LORATADINE 10 MG TABLET PO SCH (09:07)
[2017-08-15] MEDS: CITALOPRAM 40 MG TABLET PO SCH (09:08)
[2017-08-15] MEDS: LIDOCAINE 5% PATCH TRANSDERM SCH (09:08)
[2017-08-15] MEDS: ENOXAPARIN 40 MG/0.4 ML SYRINGE SUBCUT SCH (09:08)
[2017-08-15] MEDS: BUDESONIDE/FORMOTEROL 160-4.5 INHALER 6 GM INH SCH ×2 (11:22→22:26)
[2017-08-15] MEDS: COLESTIPOL 1 GM TABLET PO SCH (22:25)
[2017-08-15] MEDS: EZETIMIBE 10 MG TABLET PO SCH (22:26)
[2017-08-16 01:35] LABS: Basophils % 0.1 % (0.0-0.8); Eosinophils % 0.1 % (0.00-10.9); Hematocrit 38.5 VOL% (35.7-47.0); Immature Granulocytes % 0.4 %; Immature Granulocytes Absolute 0.06 #; Lymphocytes # 1.7 10*3/uL (1.4-4.0); Lymphocytes % 12.1 % (21.3-54.2); Mean Corpuscular HGB Conc 33.8 GM/DL (32-36); Mean Corpuscular Hemoglobin 28 PG (27-34); Mean Corpuscular Volume 83.5 FL (87-102); Mean Platelet Volume 13.7 FL (9.6-12.0); Monocytes # 1.3 10*3/uL (0.11-0.8); Monocytes % 9.7 % (1.7-12.7); Neutrophils # 10.6 10*3/uL (1.4-7.4); Neutrophils % 77.6 % (38.7-73.9); Platelet Count 218 T/CUMM (130-400); Red Blood Count 4.61 MC/CUMM (3.8-5.5); Red Cell Distribution Width 13.2 % (9.3-17.3); White Blood Count 13.6 T/CUMM (4-12)
[2017-08-16] MEDS: ALBUTEROL 2.5 MG/3 ML NEB RESP TX SCH ×3 (07:18→19:31)
[2017-08-16 09:53] LABS: Calcium 10.2 MG/DL (8.5-10.1); Osmolality,Calculated 292.3 MOS/KG (273-304); Potassium 3.4 MMOL/L (3.5-5.1)
[2017-08-16] MEDS: THEOPHYLLINE ER 300 MG TABLET PO SCH ×2 (10:29→16:58)
[2017-08-16] MEDS: ASPIRIN EC 325 MG TABLET PO SCH (10:29)
[2017-08-16] MEDS: INSULIN REGULAR 100 UNIT/ML SUBCUT SCH ×4 (10:29→20:14)
[2017-08-16] MEDS: NITROGLYCERIN 2% OINT 1 INCH/GM PACK TOP SCH ×3 (10:29→17:51)
[2017-08-16] MEDS: CITALOPRAM 40 MG TABLET PO SCH (10:30)
[2017-08-16] MEDS: LORATADINE 10 MG TABLET PO SCH (10:30)
[2017-08-16] MEDS: COLESTIPOL 1 GM TABLET PO SCH ×2 (10:30→20:13)
[2017-08-16] MEDS: hydroCHLOROthiazide 25 MG TABLET PO SCH (10:31)
[2017-08-16] MEDS: LIDOCAINE 5% PATCH TRANSDERM SCH (10:31)
[2017-08-16] MEDS: CARVEDILOL 6.25 MG TABLET PO SCH ×2 (10:31→20:13)
[2017-08-16] MEDS: LISINOPRIL 20 MG TABLET PO SCH (10:32)
[2017-08-16] MEDS: BUDESONIDE/FORMOTEROL 160-4.5 INHALER 6 GM INH SCH ×2 (10:32→20:13)
[2017-08-16] MEDS: ENOXAPARIN 40 MG/0.4 ML SYRINGE SUBCUT SCH (10:32)
[2017-08-16] MEDS: EZETIMIBE 10 MG TABLET PO SCH (20:13)
[2017-08-17] MEDS: NITROGLYCERIN 2% OINT 1 INCH/GM PACK TOP SCH ×3 (02:46→11:28)
[2017-08-17 05:44] LABS: Basophils # 0.1 10*3/uL (0.0-0.2); Basophils % 0.9 % (0.0-0.8); Eosinophils # 0.1 10*3/uL (0.0-0.87); Eosinophils % 1.9 % (0.00-10.9); Hematocrit 40.4 VOL% (35.7-47.0); Hemoglobin 13.5 GM/DL (12.0-16.0); Immature Granulocytes % 0.3 %; Immature Granulocytes Absolute 0.02 #; Lymphocytes # 2.2 10*3/uL (1.4-4.0); Lymphocytes % 29.5 % (21.3-54.2); Mean Corpuscular HGB Conc 33.4 GM/DL (32-36); Mean Corpuscular Hemoglobin 28 PG (27-34); Mean Corpuscular Volume 84.9 FL (87-102); Mean Platelet Volume 13.8 FL (9.6-12.0); Monocytes # 0.7 10*3/uL (0.11-0.8); Monocytes % 9.5 % (1.7-12.7); Neutrophils # 4.3 10*3/uL (1.4-7.4); Neutrophils % 57.9 % (38.7-73.9); Platelet Count 205 T/CUMM (130-400); Red Blood Count 4.76 MC/CUMM (3.8-5.5); Red Cell Distribution Width 13.2 % (9.3-17.3); White Blood Count 7.5 T/CUMM (4-12)
[2017-08-17 06:10] LABS: Calcium 9.8 MG/DL (8.5-10.1); Magnesium 1.7 MG/DL (1.8-2.4); Osmolality,Calculated 281.4 MOS/KG (273-304); Potassium 3.7 MMOL/L (3.5-5.1)
[2017-08-17] MEDS: ALBUTEROL 2.5 MG/3 ML NEB RESP TX SCH ×2 (07:20→13:44)
[2017-08-17] MEDS: INSULIN REGULAR 100 UNIT/ML SUBCUT SCH ×2 (08:16→14:10)
[2017-08-17] MEDS: LISINOPRIL 20 MG TABLET PO SCH (10:00)
[2017-08-17] MEDS: ASPIRIN EC 325 MG TABLET PO SCH (10:45)
[2017-08-17] MEDS: LORATADINE 10 MG TABLET PO SCH (10:45)
[2017-08-17] MEDS: CARVEDILOL 6.25 MG TABLET PO SCH (10:47)
[2017-08-17] MEDS: THEOPHYLLINE ER 300 MG TABLET PO SCH (10:48)
[2017-08-17] MEDS: ENOXAPARIN 40 MG/0.4 ML SYRINGE SUBCUT SCH (10:49)
[2017-08-17] MEDS: LIDOCAINE 5% PATCH TRANSDERM SCH (10:50)
[2017-08-17] MEDS: COLESTIPOL 1 GM TABLET PO SCH (11:22)
[2017-08-17] MEDS: hydroCHLOROthiazide 25 MG TABLET PO SCH (11:23)
[2017-08-17] MEDS: BUDESONIDE/FORMOTEROL 160-4.5 INHALER 6 GM INH SCH (11:24)
[2017-08-17] MEDS: CITALOPRAM 40 MG TABLET PO SCH (11:24)
[2017-08-17 12:27] VITALS: BP 118/78
[2017-08-17] MEDS ORDERED: ONDANSETRON ODT 4 MG TABLET PO PRN (13:24)
== END 2017-08-17 16:02 | disposition home or self-care (01) ==
LOC: N.EDINP 21:32 → N.ED 21:32 → SUATTDRO 08-15 01:59 → N.TELEN 08-15 02:26
PROVIDERS: ADMIT Hospitalist; ATTEND Internal Medicine